=== PATIENT | male | born 1975 | race Two or more races ===

== ENCOUNTER 2024-07-26 02:09 | Emergency (ER) | payer MEDICAID, SELFPAY ==
[2024-07-26 02:09] VITALS: BMI 24.0
[2024-07-26 02:17] VITALS: BP 127/83; PULSE 104; RESP 17; TEMP 36.7; O2SAT 100
--- NOTE | 2024-07-26 02:21 | EDNOTE_ITS ---
Upper Respiratory Inf. RME/HPI General Chief Complaint: Flu Like Symptoms Stated Complaint: headache, body aches, flu- like symptoms Time Seen by Provider: 07/26/24 02:16 Source: patient Arrival date/time: 07/26/24 02:09 49-year-old male presents emergency department complaining of headache, body aches, cough, and sore throat for several days. Mode of arrival: ambulatory Limitations: no limitations Related Data Previous Rx's ?Medication ?Instructions ?Recorded sumatriptan succinate 50 mg tablet 50 mg PO Q2H PRN migraine headache 09/20/17 (Imitrex) #9 tabs diazepam 10 mg tablet 10 mg PO BID PRN muscle spasm #6 06/04/23 tabs ibuprofen 600 mg tablet 600 mg PO Q8H PRN pain #14 tabs 06/04/23 ibuprofen 600 mg tablet 600 mg PO Q8H PRN pain #20 tabs 07/26/24 oseltamivir 75 mg capsule (Tamiflu) 75 mg PO BID 5 days #10 caps 07/26/24 Allergies Allergy/AdvReac Type Severity Reaction Status Date / Time fish derived Allergy Severe LIP Verified 06/04/23 10:34 SWELLING AND DIFF BREATHING Review of Systems Review of Systems Systems Reviewed: All systems reviewed, normal except as documented Constitutional Constitutional: Reports system reviewed and no additional complaints, except as documented, Reports body ache(s), Denies chills, Denies fever(s) and Reports headache(s) Eyes Eyes: Reports system reviewed and no additional complaints, except as documented and Denies change in vision ENT Ears, Nose, Mouth, and Throat: Reports system reviewed and no additional complaints, except as documented, Denies disequilibrium, Denies dizziness, Reports headache(s), Reports sore throat and Denies vertigo Cardiovascular Cardiovascular: Reports system reviewed and no additional complaints, except as documented, Denies chest pain and Denies dyspnea Respiratory Respiratory: Reports system reviewed and no additional complaints, except as documented, Denies chest congestion, Reports cough and Denies dyspnea Gastrointestinal Gastrointestinal: Reports system reviewed and no additional complaints, except as documented, Denies abdominal pain, Denies nausea and Denies vomiting Musculoskeletal Musculoskeletal: Reports system reviewed and no additional complaints, except as documented, Denies abnormal gait and Denies arthralgias Integumentary/Breasts Skin/Breast: Reports system reviewed and no additional complaints, except as documented, Denies erythema, Denies rash and Denies wounds Neurologic Neurologic: Reports system reviewed and no additional complaints, except as documented, Denies abnormal gait, Denies disequilibrium, Denies dizziness, Reports headache(s) and Denies vertigo Past Medical History Past Medical History NEUROLOGIC: Positive Meningitis CARDIAC: Negative Congestive Heart Failure RESPIRATORY: Positive Asthma; Negative Chronic Obstructive Pulmonary Disease (COPD) GENITOURINARY: Negative Renal Disease ENDOCRINE: Negative Diabetes Mellitus Type 1 or Diabetes Mellitus Type 2 OTHER HISTORY: Positive Human Immunodeficiency Virus (HIV) Social History SMOKING STATUS: Never smoker ED Exam General Limitations: Present no limitations General appearance: Present alert and in no apparent distress Head Head exam: Present atraumatic Eye Eye exam: Present normal appearance, PERRL and EOMI ENT ENT exam: Present normal exam, normal oropharynx and mucous membranes moist Neck Neck exam: Present normal inspection, full ROM and trachea midline Chest Chest inspection: Present normal inspection and symmetric chest wall rise Respiratory Respiratory exam: Present normal lung sounds bilaterally Cardiovascular Cardiovascular exam: Present regular rate, normal rhythm and normal heart sounds Abdominal Exam Abdominal exam: Present soft and normal bowel sounds Extremities Exam Extremities exam: Present normal inspection and full ROM Back Exam Back exam: Present normal inspection and full ROM Neurological Exam Neurological exam: Present alert, oriented X3 and CN II-XII intact Psychiatric Psychiatric exam: Present normal affect and normal mood Skin Skin exam: Present warm, dry, intact and normal color Course Quality Measures none Orders Category Date Time Status Acetaminophen Tab [Tylenol ES Tab] Med 07/26/24 02:24 Discontinued 1,000 mg PO X1 ONE Ibuprofen Tab [Motrin Tab] Med 07/26/24 02:24 Discontinued 600 mg PO X1 ONE Vital Signs Vital signs: Vital Signs Temperature 98.0 F 07/26/24 02:17 Pulse Rate 104 H 07/26/24 02:17 Respiratory Rate 17 07/26/24 02:17 Blood Pressure 127/83 07/26/24 02:17 Pulse Oximetry (%) 100 07/26/24 02:17 Oxygen Delivery Method Room Air 07/26/24 02:17 100% room air within normal limits Upper Respiratory Infection MDM Narrative MDM Narrative:: 49-year-old male presents emergency department complaining of headache, body aches, cough, and sore throat for several days. Influenza positive. No adventitious lung sounds on auscultation. Patient appears nontoxic and is hemodynamic stable. Patient oxygen saturations 100% on room air. Patient data External records reviewed:: [facility] previous records Clinical information provided by:: patient Social determinants that could affect healthcare access:: none Patient has the following chronic illnesses:: See chart How is presenting disease/condition affected by chronic disease/condition?: uneffected by Evaluation data The following diagnostics were reviewed and interpreted by me:: lab results Lab and/or radiology exams considered but not ordered:: Ordered Interpretation Summary: Interpreted by me Medications / Prescriptions Medications or Prescriptions considered but not ordered:: Ordered Medication administrations:: Medication Administration History Discontinued Medications Acetaminophen (Acetaminophen 500 Mg Tablet) 1,000 mg PO X1 ONE Stop: 07/26/24 02:25 Last Admin: 07/26/24 02:27 Dose: 1,000 mg Documented By: KG Ibuprofen (Ibuprofen Tab 600 Mg Tablet) 600 mg PO X1 ONE Stop: 07/26/24 02:25 Last Admin: 07/26/24 02:28 Dose: 600 mg Documented By: KG Given Consultations Consultation(s) initiated? (list below): No Diagnosis Upper Respiratory Differential Diagnosis: upper respiratory infection, otitis media, sinusitis, viral infection, bronchitis, influenza and pharyngitis Most likely diagnosis given after review of the tests above:: Influenza Admission Indicated Admission indicated?: not indicated Admission Request Was there a request for admission?: No Disposition Plan Disposition Plan: Discharge Discharge Attestation Discharge Attestation: The patient and all family members were given an opportunity to ask questions and understood the discharge instructions. Discharge instructions specifically effects, indications for sooner follow up or return to the emergency department, and the expected course of current diagnosis. Patient condition: Stable Discharge Plan Plan Patient Disposition: HOME (Self Care) Disposition Comment: Stable Prescriptions/Referrals Prescriptions/Med Rec: New oseltamivir [Tamiflu] 75 mg capsule 75 mg PO BID 5 Days Qty: 10 0RF ibuprofen 600 mg tablet 600 mg PO Q8H PRN (Reason: pain) Qty: 20 0RF No Action sumatriptan succinate [Imitrex] 50 mg tablet 50 mg PO Q2H PRN (Reason: migraine headache) Qty: 9 0RF Rx Instructions: take at the onset, repeat in 2 hours, not to exceed 100 mg in a 24 hour period diazepam 10 mg tablet 10 mg PO BID PRN (Reason: muscle spasm) Qty: 6 0RF ibuprofen 600 mg tablet 600 mg PO Q8H PRN (Reason: pain) Qty: 14 0RF Problem List Clinical Impression: Influenza Patient/Caregiver Discharge Instructions Discharge Activity: activity as tolerated Education Materials: ED Influenza (Adult) Additional Instructions: Drink plenty of fluids and get plenty of rest. Take Tylenol or ibuprofen as needed for fever or pain. Take Tamiflu as prescribed. Follow-up with primary care provider in 2 to 3 days. Return to emergency department for any worsening symptoms or as needed. Print Language: Irish Stand Alone Forms: [employer]a Award Info., Patient Portal Info Letter PA/TELE GROUT SEWER LINE REPAIRER Supervising Physician PA/TELE GROUT SEWER LINE REPAIRER Supervising Physician: Dr. Huang
[2024-07-26] MEDS: ACETAMINOPHEN 500 MG TABLET 1000 MG PO (02:27)
[2024-07-26] MEDS: IBUPROFEN TAB 600 MG TABLET PO (02:28)
== END 2024-07-26 02:32 | disposition home or self-care (01) ==
LOC: SERX 02:31
PROVIDERS: Emergency Provider Emergency Medicine; PCP Nurse Practitioner Family
DX: J11.1 Influenza due to unidentified influenza virus with other respiratory manifestations (principal)
CPT/HCPCS: 87400; 99283; A9270